=== PATIENT | female | born 1970 | race Hispanic/Latino ===

== ENCOUNTER 2019-04-24 22:35 | Emergency (ER) | payer OTHER ==
[~2019-04-24] VITALS: Ht 149.9 cm; Wt 72.6 kg
--- OUTSIDE RECORDS SUMMARY | 2019-04-24 22:38 | XMS REPORT ---
Author Author [facility] Address Unknown Phone Unavailable Care Team Providers Care Roll Dough Divider Name Role Phone Pb PAYAN Unavailable Unavailable Janny BHAKTA Unavailable Unavailable Problems This patient has no known problems. Allergies, Adverse Reactions, Alerts This patient has no known allergies or adverse reactions. Medications This patient has no known medications. Results Test Description Test Time Test Comments Text Results Atomic Results Result Comments THYROID 2019-02-07 12:25:00 [place] [address] Patient Name: FRANCIS GUZMAN MR #: [id number] : 1970 Age/Sex: 48/F Req #: [id number] Adm Physician: Ordered by: SWATI PAYAN MD Report #: [id number] Location: US Room/Bed: Procedure: [id number] US/US THYROID Exam Date: Exam Time: REPORT STATUS: Signed EXAMINATION: Thyroid ultrasound. CLINICAL HISTORY: Thyroiditis, hypoth yroidism COMPARISON: None. . DISCUSSION: Transverse and longitudinal images of the thyroid were obtained utilizing grayscale and color Doppler modalities. The right thyroid lobe measures 4.1 x 1.3 x 1.2 cm and shows mildly heterogeneous echogenicity. No nodules are seen. The left thyroid lobe measures 4 x 0.8 x 1.4 cm and shows mildly heterogeneous echogenicity. No nodules are seen. The thyroid isthmus measures 0.3 cm and shows normal echogenicity. No nodules are seen. There is no cervical adenopathy. IMPRESSION: Nonspecific mildly heterogeneous appearance of the thyroid parenchyma without discrete nodule. Signed by: Dr. Ronald Aggarwal M.D. on 02/07/2019 12:27 PM Dictated By: RONALD AGGARWAL MD 1227 Transcribed By: JOHNNIE on 02/07/19 1227 COPY TO: SWATI PAYAN MD MAMMOGRAPHY DIGITAL SCR BILAT 2019-02-07 12:10:00 [place] [address] Patient Name: FRANCIS GUZMAN MR #: [id number] : 1970 Age/Sex: 48/F Req #: [id number] Adm Physician: Ordered by: SWATI PAYAN MD Report #: [id number] Location: Room/Bed: Procedure: [id number] MG/MAMMOGRAPHY DIGITAL SCR BILAT Exam Date: 02/07/19 Exam Time: 1109 REPORT STATUS: Signed #[id number] - MGSCRBIL #BILATERAL DIGITAL SCREENING MAMMOGRAM WITH CAD: 02/07/2019 CLINICAL: Routine screening. Comparison is made to exam dated: 10/10/2017 mammogram - [facility]. Current study contains 4 films. The tissue of both breasts is heterogeneously dense. This may lower the sensitivity of mammography. Current study was also evaluated with a Computer Aided Detection (CAD) system. There are benign intramammary nodes in the right breast. There also is a benign intramammary node in the left breast. No significant masses, calcifications, or other findings are seen in either breast. There has been no significant interval change. IMPRESSION: BENIGN There is no mammographic evidence of malignancy. A 1 year screening mammogram is recommended. The patient will be notified by letter of the results. Douglas jerome/leyda:02/23/2019 08:25:00 Brass Burnisher: Elizabeth DEJESUS(Phani)(Pb), [facility] amos sent: Compared to Prior B9 Mammogram BI-RADS: 2 Benign Dictated By: DOUGLAS MASTERS DO 4 Transcribed By: LEYDA on 02/23/19824 COPY TO: SWATI PAYAN MD MAMMOGRAPHY DIGITAL SCR BILAT [place] [address] Patient Name: FRANCIS GUZMAN MR #: [id number] : 1970 Age/Sex: 47/F Req #: [id number] [facility] Physician: Ordered by: SWATI PAYAN MD Report #: [id number] Location: MAMMO Room/Bed: Procedure: [id number] MG/MAMMOGRAPHY DIGITAL SCR BILAT Exam Date: 10/10/17 Exam Time: 1123 REPORT STATUS: Signed #[id number] - MGSCRBIL #BILATERAL DIGITAL SCREENING MAMMOGRAM WITH CAD: 10/10/2017 CLINICAL: Routine screening. No prior exams were available for comparison. Current study contains 4 films. The tissue of both breasts is heterogeneously dense. This may lower the sensitivity of mammography. Current study was also evaluated with a Computer Aided Detection (CAD) system. There are benign intramammary nodes in the right breast. There also is a benign intramammary node in the left breast. No significant masses, calcifications, or other findings are seen in either breast. IMPRESSION: BENIGN There is no mammographic evidence of malignancy. A 1 year screening mammogram is recommended. The patient will be notified by letter of the results. Douglas jerome/leyda:10/18/2017 10:20:51 Brass Burnisher: Elizabeth LUGO)(Pb), [facility] letter sent: Normal Exam Mammogram BI-RADS: 2 Benign Dictated By: DOUGLAS MASTERS DO 1020 Transcribed By: LEYDA on 10/18/17 1020 COPY TO: SWATI PAYAN MD CT ABDOMEN/PELVIS WO [place] [address] Patient Name: FRANCIS GUZMAN MR #: [id number] : 1970 Age/Sex: 47/F Req #: [id number] Adm Physician: Ordered by: TIM BHAKTA MD Report #: [id number] Location: ER Room/Bed: Procedure: [id number] CT/CT ABDOMEN/PELVIS WO Exam Date: 09/27/17 Exam Time: 0105 REPORT STATUS: Signed EXAM: CT Abdomen and Pelvis WITHOUT contrast INDICATION: Renal stone, painful urination. COMPARISON: None. TECHNIQUE: Abdomen and pelvis were scanned utilizing a multidetector helical scanner from the lung base to the pubic symphysis without administration of IV contrast. Absence of intravenous contrast decreases sensitivity for detection of focal lesions and vascular pathology. Coronal and sagittal reformations were obtained. Stone protocol is performed. IV CONTRAST: None. ORAL CONTRAST: Water RADIATION DOSE: Total DLP: 476.98 mGy*cm Estimated effective dose: (DLP x 0.015 x size factor) mSv COMPLICATIONS: None FINDINGS: LINES and TUBES: None. LOWER THORAX: Unremarkable HEPATOBILIARY: No focal hepatic lesions. No doug iary ductal dilation. GALLBLADDER: No radio-opaque stones or sludge. No wall thickening. SPLEEN: No splenomegaly. PANCREAS: No focal masses or ductal dilatation. ADRENALS: No adrenal nodules KIDNEYS/URETERS: No hydronephrosis. No cystic or solid mass lesions. No stones. GI TRACT: No abnormal distention, wall thickening, or evidence of bowel obstruction. There are diverticula within the colon without evidence of diverticulitis. Appendix is normal. PELVIC ORGANS/BLADDER: Within the most dependent portion of the urinary bladder on the right of midline there is evidence of high density debris and punctate calcifications best seen on series 3, image 151 and sagittal series 400, image 60 LYMPH NODES: No lymphadenopathy. VESSELS: Unremarkable. PERITONEUM / RETROPERITONEUM: No free air or fluid. BONES: Unremarkable. SOFT TISSUES: Unremarkable. IMPRESSION: 1. Findings are compatible with a recently p assed punctate stone into the bladder with associated blood products (clot). 2. No evidence of nephrolithiasis or hydronephrosis. 3. Diverticulosis without evidence of diverticulitis. Signed by: Dr. Kyle Cardoso M.D. on 09/27/2017 2:00 AM Dictated By: KYLE LYNCH MD 9 Transcribed By: JOHNNIE on 09/27/17199 COPY TO: TIM BHAKTA MD
--- NOTE | 2019-04-25 00:15 | Diagnostic Imaging Report ---
EXAMINATION: PA and lateral views of the chest. COMPARISON: None CLINICAL HISTORY: cough DISCUSSION: Lines/tubes: None. Lungs: The lungs are well inflated and clear. No pneumonia or pulmonary edema. Pleura: No pleural effusion or pneumothorax. Heart and mediastinum: The cardiomediastinal silhouette is normal. Bones and soft tissues: No acute bony abnormalities. IMPRESSION: No acute cardiopulmonary abnormalities. Signed by: Dr. Clifton Hudson M.D. on 04/25/2019 12:12 AM
== END 2019-04-25 00:53 | disposition home or self-care (01) ==
LOC: ER 22:35
DX: R05 Cough (principal); E03.9 Hypothyroidism, unspecified
CPT/HCPCS: 71046; 93005; 99283

== ENCOUNTER 2019-08-16 00:16 | Emergency (ER) | payer OTHER ==
[~2019-08-16] VITALS: Ht 149.9 cm; Wt 72.6 kg
[2019-08-16 00:43] LABS: BASOPHILS % 0.5 % (0.0-1.0); EOSINOPHILS # (AUTO) 0.1 (0.0-0.4); EOSINOPHILS % 2.4 % (0.0-6.0); HEMATOCRIT 35.6 % (34.2-44.1); HEMOGLOBIN 12.2 g/dL (12.0-16.0); LYMPHOCYTES # (AUTO) 2.6 (1.0-3.2); LYMPHOCYTES % 43.5 % (18.0-39.1); MEAN CORPUSCULAR HEMOGLOBIN 32.4 pg (28-32); MEAN CORPUSCULAR HGB CONC 34.3 g/dL (31-35); MEAN CORPUSCULAR VOLUME 94.7 fL (81-99); MONOCYTES # (AUTO) 0.7 (0.2-0.8); NEUTROPHILS # (AUTO) 2.5 (2.1-6.9); NEUTROPHILS % 42.4 % (38.7-80.0); PLATELET COUNT 220 x10e3/uL (140-360); RED BLOOD COUNT 3.76 x10e6/uL (3.6-5.1)
[2019-08-16 00:50] LABS: BILIRUBIN,URINE NEGATIVE (NEGATIVE); CLARITY,URINE CLEAR (CLEAR); COLOR,URINE YELLOW (YELLOW); KETONES,URINE NEGATIVE (NEGATIVE); LEUKOCYTE ESTERASE ,URINE TRACE (NEGATIVE); NITRITE,URINE NEGATIVE (NEGATIVE); PROTEIN,URINE DIPSTICK NEGATIVE (NEGATIVE); URINE UROBILINOGEN 0.2 mg/dL (0.2 - 1)
[2019-08-16 00:59] LABS: BACTERIA,URINE RARE /HPF; EPITHELIAL CELLS,URINE FEW /LPF; PREGNANCY TEST, URINE NEGATIVE (NEGATIVE); RBC,URINE 0-5 /HPF (0-5); TRANSITIONAL EPI CELLS,URINE FEW; WBC,URINE (MAN) 0-5 /HPF (0-5)
[2019-08-16 01:04] LABS: ALANINE AMINOTRANSFERASE 49 IU/L (0-55); ALBUMIN 4.2 g/dL (3.5-5.0); ALBUMIN/GLOBULIN RATIO 1.3 (0.8-2.0); ALKALINE PHOSPHATASE 132 IU/L (40-150); ANION GAP 12.9 mmol/L (8-16); BLOOD UREA NITROGEN 9 mg/dL (7-26); BUN/CREATININE RATIO 13 (6-25); CALCIUM 10.1 mg/dL (8.4-10.2); CARBON DIOXIDE 29 mmol/L (22-29); CHLORIDE 103 mmol/L (98-107); CREATINE KINASE 117 IU/L (29-168); CREATININE, SERUM 0.67 mg/dL (0.57-1.11); EST GLOMERULAR FILTRATION RATE > 60 ML/MIN (60-); GLUCOSE 112 mg/dL (74-118); POTASSIUM 3.9 mmol/L (3.5-5.1); SODIUM 141 mmol/L (136-145)
--- NOTE | 2019-08-16 01:47 | Diagnostic Imaging Report ---
Mila Teran EXAMINATION: CHEST 2 VIEWS INDICATION: ^CHEST PAIN ^[id number] ^0050 ^Y COMPARISON: 04/24/2019 FINDINGS: PA and lateral views TUBES and LINES: None. LUNGS: Lungs are well inflated. There is no evidence of pneumonia or pulmonary edema. PLEURA: No pleural effusion or pneumothorax. HEART AND MEDIASTINUM: The cardiomediastinal silhouette is unremarkable. BONES AND SOFT TISSUES: No acute osseous lesion. Soft tissues are unremarkable. UPPER ABDOMEN: No free air under the diaphragm. IMPRESSION: No acute thoracic abnormality. Signed by: Dr. Casimiro Mar MD on 08/16/2019 1:44 AM
[2019-08-16 02:46] VITALS: BP 101/59
== END 2019-08-16 02:58 | disposition home or self-care (01) ==
LOC: ER 00:16
DX: R00.2 Palpitations (principal)
CPT/HCPCS: 36415; 71046; 80053; 81001; 81025; 82550; 82553; 84484; 85025; 93005; 99284

== ENCOUNTER 2021-01-30 04:22 | Emergency (ER) | payer SELFPAY ==
[~2021-01-30] VITALS: Ht 149.9 cm; Wt 72.6 kg
[2021-01-30] MEDS ORDERED: ASPIRIN 81 MG CHEW TAB PO ONE (04:45)
[2021-01-30 04:48] LABS: BASOPHILS # (AUTO) 0.1 (0.0-0.1); BASOPHILS % 0.9 % (0.0-1.0); EOSINOPHILS # (AUTO) 0.3 (0.0-0.4); EOSINOPHILS % 3.7 % (0.0-6.0); HEMATOCRIT 39.2 % (34.2-44.1); HEMOGLOBIN 13.2 g/dL (12.0-16.0); LYMPHOCYTES # (AUTO) 2.8 (1.0-3.2); LYMPHOCYTES % 42.3 % (18.0-39.1); MEAN CORPUSCULAR HEMOGLOBIN 31.8 pg (28-32); MEAN CORPUSCULAR HGB CONC 33.7 g/dL (31-35); MEAN CORPUSCULAR VOLUME 94.5 fL (81-99); MONOCYTES # (AUTO) 0.7 (0.2-0.8); NEUTROPHILS # (AUTO) 2.8 (2.1-6.9); PLATELET COUNT 278 x10e3/uL (140-360); RED BLOOD COUNT 4.15 x10e6/uL (3.6-5.1); RED CELL DISTRIBUTION WIDTH 12.4 % (11.7-14.4)
[2021-01-30 05:04] LABS: ALANINE AMINOTRANSFERASE 32 IU/L (0-55); ALBUMIN 4.4 g/dL (3.5-5.0); ALBUMIN/GLOBULIN RATIO 1.2 (0.8-2.0); ALKALINE PHOSPHATASE 106 IU/L (40-150); ANION GAP 14.7 mmol/L (8-16); BLOOD UREA NITROGEN 11 mg/dL (7-26); BUN/CREATININE RATIO 16 (6-25); CALCIUM 9.2 mg/dL (8.4-10.2); CARBON DIOXIDE 23 mmol/L (22-29); CHLORIDE 108 mmol/L (98-107); CREATINE KINASE 97 IU/L (29-168); CREATININE, SERUM 0.67 mg/dL (0.57-1.11); EST GLOMERULAR FILTRATION RATE > 60 ML/MIN (60-); GLUCOSE 111 mg/dL (74-118); POTASSIUM 3.7 mmol/L (3.5-5.1); SODIUM 142 mmol/L (136-145)
[2021-01-30] MEDS ORDERED: PEPCID20 MG PO (05:31)
[2021-01-30 05:45] VITALS: BP 124/79
== END 2021-01-30 05:45 | disposition home or self-care (01) ==
LOC: ER 04:41
DX: R07.89 Other chest pain (principal); F41.9 Anxiety disorder, unspecified; I10 Essential (primary) hypertension; E03.9 Hypothyroidism, unspecified
CPT/HCPCS: 36415; 71045; 80053; 82550; 82553; 84484; 85025; 93005; 99284

== ENCOUNTER 2022-09-14 18:23 | Emergency (ER) | payer OTHER ==
[~2022-09-14] VITALS: Ht 149.9 cm; Wt 72.6 kg
[~2022-09-14 18:23] MED LIST: PEPCID20 MG PO
[2022-09-14] MEDS ORDERED: ONDANSETRON HCL INJ 2MG/ML 2ML 2 MG/ML VIAL IV STA (18:57)
[2022-09-14] MEDS ORDERED: KETOROLAC TROMETHAMINE 30 MG/ML VIAL IV STA (18:57)
[2022-09-14] MEDS ORDERED: SODIUM CHLORIDE 0.9% 1000ML 1,000 ML IV SCH (19:00)
[2022-09-14] MEDS ORDERED: SODIUM CHLORIDE FLUSH 10 ML SYR IV PRN (19:00)
[2022-09-14 19:08] LABS: BASOPHILS % 0.7 % (0.0-1.0); EOSINOPHILS # (AUTO) 0.1 (0.0-0.4); EOSINOPHILS % 1.9 % (0.0-6.0); HEMATOCRIT 41.8 % (34.2-44.1); HEMOGLOBIN 13.7 g/dL (12.0-16.0); LYMPHOCYTES # (AUTO) 2.7 (1.0-3.2); LYMPHOCYTES % 50.5 % (18.0-39.1); MEAN CORPUSCULAR HEMOGLOBIN 32.3 pg (28-32); MEAN CORPUSCULAR HGB CONC 32.8 g/dL (31-35); MEAN CORPUSCULAR VOLUME 98.6 fL (81-99); MONOCYTES # (AUTO) 0.4 (0.2-0.8); NEUTROPHILS # (AUTO) 2.1 (2.1-6.9); NEUTROPHILS % 38.7 % (38.7-80.0); PLATELET COUNT 289 x10e3/uL (140-360); RED BLOOD COUNT 4.24 x10e6/uL (3.6-5.1); RED CELL DISTRIBUTION WIDTH 11.9 % (11.7-14.4)
[2022-09-14 19:22] LABS: PARTIAL THROMBOPLASTIN TIME 30.9 seconds (23.8-35.5)
[2022-09-14 19:29] LABS: LIPASE 19 U/L (8-78)
[2022-09-14 19:31] LABS: ALBUMIN 4.6 g/dL (3.5-5.0); ALBUMIN/GLOBULIN RATIO 1.3 (0.8-2.0); ANION GAP 12.9 mmol/L (8-16); CALCIUM 9.2 mg/dL (8.4-10.2); CREATININE, SERUM 0.64 mg/dL (0.57-1.11); POTASSIUM 3.9 mmol/L (3.5-5.1)
[2022-09-14 19:37] LABS: INR 0.89; PROTHROMBIN TIME 12.9 seconds (11.9-14.5)
[2022-09-14 19:58] LABS: AMPHETAMINES SCREEN,URINE NEGATIVE (NEGATIVE); BENZODIAZEPINES SCREEN,URINE NEGATIVE (NEGATIVE); CLARITY,URINE CLEAR (CLEAR); COLOR,URINE YELLOW (YELLOW); KETONES,URINE NEGATIVE (NEGATIVE); LEUKOCYTE ESTERASE ,URINE TRACE (NEGATIVE); NITRITE,URINE NEGATIVE (NEGATIVE); PHENCYCLIDINE SCREEN,URINE NEGATIVE (NEGATIVE); PROTEIN,URINE DIPSTICK NEGATIVE (NEGATIVE); URINE UROBILINOGEN 0.2 mg/dL (0.2 - 1)
[2022-09-14 20:08] LABS: BACTERIA,URINE RARE /HPF; WBC,URINE (MAN) 0-5 /HPF (0-5)
[2022-09-14] MEDS ORDERED: ONDANSETRON ODT4 MG PO (22:20)
[2022-09-14] MEDS ORDERED: NAPROSYN500 MG PO (22:20)
== END 2022-09-14 22:31 | disposition home or self-care (01) ==
LOC: ER 18:24
DX: K80.20 Calculus of gallbladder without cholecystitis without obstruction (principal); E03.9 Hypothyroidism, unspecified; F41.9 Anxiety disorder, unspecified
CPT/HCPCS: 36415; 74176; 76705; 80053; 80307; 81001; 83690; 84702; 85025; 85610; 85730; 99284; J1885; J2405; J7030

== ENCOUNTER 2022-12-06 09:11 | Emergency (ER) | payer OTHER ==
[~2022-12-06] VITALS: Ht 154.9 cm; Wt 74.0 kg
[~2022-12-06 09:11] MED LIST changes: +NAPROSYN500 MG PO; +ONDANSETRON ODT4 MG PO
[2022-12-06] MEDS ORDERED: LEVOTHYROXINE75 MC1 (09:32)
[2022-12-06] MEDS ORDERED: BROMFED DM COU118 ML PO (10:25)
[2022-12-06] MEDS ORDERED: CEFDINIR300 MG PO (10:25)
== END 2022-12-06 10:28 | disposition home or self-care (01) ==
LOC: FSED 09:20
DX: R05.9 Cough, unspecified (principal); J20.9 Acute bronchitis, unspecified; J06.9 Acute upper respiratory infection, unspecified; I10 Essential (primary) hypertension; E03.9 Hypothyroidism, unspecified; F41.9 Anxiety disorder, unspecified; Z20.822 Contact with and (suspected) exposure to COVID-19
CPT/HCPCS: 71045; 83518; 87400; 99283; U0002

== ENCOUNTER 2023-02-10 15:24 | Emergency (ER) | payer OTHER ==
[~2023-02-10] VITALS: Ht 154.9 cm; Wt 72.6 kg
[~2023-02-10 15:24] MED LIST changes: +BROMFED DM COU118 ML PO; +CEFDINIR300 MG PO; +LEVOTHYROXINE75 MC1
[2023-02-10] MEDS ORDERED: HYDROCODONE/APAP 5MG-325MG TAB PO ONE (15:45)
[2023-02-10] MEDS ORDERED: HYDROCODONE/APAP 5MG-325MG TAB ONE (15:50)
[2023-02-10] MEDS ORDERED: CYCLOBENZAPRINE HCL 10 MG TAB ONE (15:58)
[2023-02-10] MEDS ORDERED: DIAZEPAM 5 MG TAB PO ONE (16:00)
[2023-02-10] MEDS ORDERED: CYCLOBENZAPRINE HCL 10 MG TAB PO ONE (16:30)
[2023-02-10] MEDS ORDERED: PREDNISONE20 MG PO (16:54)
[2023-02-10] MEDS ORDERED: CYCLOBENZAPRINE5 MG PO (16:54)
[2023-02-10] MEDS ORDERED: IBUPROFEN600 MG PO (16:54)
== END 2023-02-10 17:12 | disposition home or self-care (01) ==
LOC: FSED 15:27
DX: M54.42 Lumbago with sciatica, left side (principal); E03.9 Hypothyroidism, unspecified
CPT/HCPCS: 74176; 80053; 81003; 81025; 85025; 99283